=== PATIENT | female | born 1985 | race Caucasian/White ===

== ENCOUNTER 2019-11-15 11:47 | Emergency (ER) | payer BC ==
[~2019-11-15] VITALS: Ht 160 cm; Wt 63.5 kg
[2019-11-15 11:56] VITALS: BP 132/86; Ht 160 cm; Wt 63.5 kg
[2019-11-15 12:39] LABS: BASOPHIL % 0.3 % (0-2); PLATELET COUNT 267 x10^3mcL (130-400); RED CELL DISTRIBUTION WIDTH 12.6 % (11.5-14.5)
[2019-11-15 12:41] LABS: microscopic required? YES
[2019-11-15 12:43] LABS: urine erythrocyte 3+ (NEGATIVE)
== END 2019-11-15 13:37 | disposition home or self-care (01) ==
LOC: ED 11:47
PROVIDERS: Emergency Medicine
DX: N94.6 Dysmenorrhea, unspecified (principal)
CPT/HCPCS: 36415